=== PATIENT | male | born 1985 | race Caucasian/White ===

== ENCOUNTER 2022-10-20 16:20 | Outpatient (CLI) | payer BC, SELFPAY ==
[2022-10-20 21:13] LABS: Chloride* 103 mmol/L (96-114); Sodium* 141 mmol/L (135-149)
[2022-10-20 21:16] LABS: Creatinine* 0.8 mg/dL (0.5-1.5); Estimated Glomerular Filt Rate 118 ml/min
[2022-10-20 21:17] LABS: Blood Urea Nitrogen* 16 mg/dL (5-24); Calcium* 9.7 mg/dL (8.4-10.6); Carbon Dioxide* 28 mmol/L (20-32); Glucose* 85 mg/dL (60-115)
[2022-10-20 21:57] LABS: HIV 1/2/P24 Combo Screen* Negative (Negative)
[2022-10-20 22:57] LABS: Chlamydia DNA Amplified* NOT DETECTED (No Detected); GC DNA Amplified* NOT DETECTED (No Detected)
== END 2022-10-20 16:21 | disposition home or self-care (01) ==
PROVIDERS: Visit Provider Family Medicine
DX: Z00.00 Encounter for general adult medical examination without abnormal findings (principal); I10 Essential (primary) hypertension; Z11.3 Encounter for screening for infections with a predominantly sexual mode of transmission
CPT/HCPCS: 80048; 86703; 87491; 87591

== ENCOUNTER 2023-10-21 07:55 | Outpatient (CLI) | payer BC, SELFPAY ==
--- OUTSIDE RECORDS SUMMARY | 2023-10-21 10:47 | XMS_ITS | Encounter Summary ---
Author Name Unknown Organization [facility] Address [address] [place] [address] Care Team Providers Care Test Consultant Name Role Phone No Ref-Primary, Physician Primary Care Provider Aline Benito PA-C Primary Care Provider + Aline Benito PA-C Unavailable Aline Benito PA-C Unavailable Dana Carcamo MD Unavailable Leslie Thorne APRN THERMOSTAT MAKER Unavailable Tex Patino MD Unavailable Dana Carcamo MD Unavailable Tex Patino MD Unavailable Tex Patino MD Unavailable Dana Carcamo MD Unavailable Dana Carcamo MD Unavailable Tex Patino MD Unavailable Dana Carcamo MD Unavailable Tex Patino MD Unavailable Dana Carcamo MD Unavailable Tex Patino MD Unavailable Dana Carcamo MD Unavailable Tex Patino MD Unavailable Tex Patino MD Unavailable Encounter Details Date Type Department Care Team (Late st Contact Info) Description 10/07/2017 MyC Medical Advice [address] [phone] Zeny Llanos, RN Social History Tobacco Use Types Packs/Day Years Used Date Smoking Tobacco: Never Smokeless Tobacco: Never Alcohol Use Standard Drinks/Week Comments Yes 0 (1 standard drink = 0.6 oz pur e alcohol) occasionally Sex and Gender Information Value Date Recorded Sex Assigned at Male 09/09/2020 3:14 PM ENRICHMENT TEACHER Gender Identity Male 09/09/2020 3:14 PM ENRICHMENT TEACHER Sexual Orientation Bisexual 04/09/2021 3: 59 PM CDT Sexual Orientation Something else 04/09/2021 3: 59 PM CDT documented as of this encounter Plan of Treatment Not on file documented as of this encounter Visit Diagnoses Not on filedocumented in this encounter Additional Health Concerns Assessment Noted Time PHQ-9 Depression Total Score: 20 017 7:31 AM CDT documented as of this encounter Care Teams Test Consultant Relationship Specialty Start Date End Date No Ref-Primary, Physician PCP - General 09/09/15 04/13/18 Aline Benito PA-C 477[address] [facility] [place] [address] PCP - General Physician Animal Husbandry Manager - Medical 04/14/18 Aline Benito PA-C 45330 [facility] [place] [address] PCP - Assigned PCP 04/17/18 12/13/18 Aline Benito PA-C 89[address] [place] [address] Assigned PCP 04/17/18 12/14/20 [place] [address] [place] [address] Assigned PCP 12/15/20 05/17/21 Leslie Thorne APRN [facility] [address] [place] [address] Assigned PCP 05/18/21 07/19/21 [place] [address] [place] [address] Assigned PCP 07/20/21 09/13/21 [place] [address] [place] [address] Assigned PCP 09/14/21 10/04/21 [place] [address] [place] [address] Assigned PCP 10/05/21 10/18/21 [place] [address] [place] [address] Assigned PCP 10/26/21 11/01/21 [place] [address] [place] [address] Assigned PCP 10/19/21 10/25/21 [place] [address] [place] [address] Assigned PCP 11/23/21 01/10/22 [place] [address] [address] J[place]MA[place] N[place] [address] Assigned PCP 11/16/21 11/22/21 [place] [address] [address] JUAN STALE[place] [address] Assigned PCP 11/02/21 11/15/21 [place] [address] JUAN MARMOLEJO [address] Assigned PCP 01/11/22 02/07/22 [place] [address] [address] JUAN STALEY [address] Assigned PCP 02/08/22 03/13/22 [place] [address] [address] JUAN STALEY 87498 Assigned PCP 03/28/22 09/25/22 [place] [address] JUAN MARMOLEJO [address] Assigned PCP 03/21/22 03/27/22 [place] [address] JUAN MARMOLEJO [address] Assigned PCP 03/14/22 03/20/22 [place] [address] JU[place] MARMOLEJO 260[address] Assigned PCP 12/05/22 documented as of this encounter
--- OUTSIDE RECORDS SUMMARY | 2023-10-21 10:47 | XMS_ITS | Encounter Summary ---
Author Name Unknown Organization [facility] Address [address] [place] [address] Care Team Providers Care Electric Gas Appliances Demonstrator Name Role Phone Aline Benito PA-C Primary Care Provider + Tex Patino MD Unavailable [phone] Dana Carcamo MD Unavailable Tex Patino MD [...] Care Team (Late st Contact Info) Description 07/24/2021 [facility] [address] [facility], [address] JU[place] [address] Kyra Grover Social History Tobacco Use Types Packs/Day Years Used Date Smoking Tobacco: Never Smokeless Tobacco: Never Alcohol Use Standard Drinks/Week Comments Not Currently 0 (1 standard drink = 0.6 oz pur e alcohol) occ beer here and there PHQ-2 Answer Date Recorded PHQ-2 Score 2 07/10/2021 Sex and Gender Information Value Date Recorded Sex Assigned at Male 09/09/2020 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 No / Unsure 07/24/2021 10:02 AM CDT documented as of this encounter Plan of Treatment Not on file documented as of this encounter Visit Diagnoses Not on filedocumented in this encounter Additional Health Concerns Assessment Noted Time PHQ-9 Depression Total Score: 7 05/17/20 21 7:03 AM CDT documented as of this encounter Care Teams Electric Gas Appliances Demonstrator Relationship Specialty Start Date End Date Aline Benito PA-C [id number] [place] [address] [place] [address] PCP - General Physician Automatic Furnace Operator - Medical 04/14/18 [place] [address] [place] [address] Assigned PCP 07/20/21 09/13/21 [place] [address] [place] [address] Assigned PCP 09/14/21 10/04/21 [place] [address] [place] [address] Assigned PCP 10/05/21 10/18/21 [place] [address] [place] [address] Assigned PCP 10/26/21 11/01/21 [place] [address] [place] [address] Assigned PCP 10/19/21 10/25/21 [place] [address] [place] [address] Assigned PCP 11/23/21 01/10/22 [place] [address] [place] [address] Assigned PCP 11/16/21 11/22/21 [place] [address] [place] [address] Assigned PCP 11/02/21 11/15/21 [place] [address] [place] [address] Assigned PCP 01/11/22 02/07/22 [place] [address] [place] [address] Assigned PCP 02/08/22 03/13/22 [place] [address] JUAN MARMOLEJO [address] Assigned PCP 03/28/22 09/25/22 [place] [address] JUAN MARMOLEJO [address] Assigned PCP 03/21/22 03/27/22 [place] [address] JUAN MARMOLEJO [address] Assigned PCP 03/14/22 03/20/22 [place] [address] JUAN MARMOLEJO [address] Assigned PCP 12/05/22 documented as of this encounter
--- OUTSIDE RECORDS SUMMARY | 2023-10-21 10:47 | XMS_ITS | Encounter Summary ---
Author Name Unknown Organization [facility] Address [address] [place] [address] Care Team Providers Care Automobile Tester Name Role Phone Aline Benito PA-C Primary Care Provider + Aline Benito PA-C Unavailable Dana Carcamo MD Unavailable Leslie Thorne APRN, CNP Unavailable Tex Patino MD Unavailable Dana Carcamo [...] Encounter Details Date Type Department Care Team (Latest Contact Info) Description 10/08/2020 Historic Results Social History Tobacco Use Types Packs/Day Years Used Date Smoking Tobacco: Never Smokeless Tobacco: Never Alcohol Use Standard Drinks/Week Comments Not Currently 0 (1 standard drink = 0.6 oz pur e alcohol) occ beer here and there PHQ-2 Answer Date Recorded PHQ-2 Score 2 10/08/2020 Sex and Gender Information Value Date Recorded Sex Assigned at Male 09/09/2020 3:14 PM LUMBER BEARER Gender Identity Male 09/09/2020 3:14 PM LUMBER BEARER Sexual Orientation Bisexual 04/09/2021 3: 59 PM CDT Sexual Orientation Something else 04/09/2021 3: 59 PM CDT COVID-19 Exposure Response Date Recorded In the last month, have you been in contact with someone who was confirmed or suspected to have Coronavirus / COVID-19? No / Unsure 10/08/2020 11:38 AM LUMBER BEARER documented as of this encounter Plan of Treatment Not on file documented as of this encounter Visit Diagnoses Not on filedocumented in this encounter Additional Health Concerns Assessment Noted Time PHQ-9 Depression Total Score: 14 020 7:01 AM LUMBER BEARER documented as of this encounter Care Teams Automobile Tester Relationship Specialty Start Date End Date Aline Benito PA-C 38079 [address] [place] [address] PCP - General Physician Corporation Secretary - Medical 04/14/18 Aline Benito PA-C 68894 [place] [address] Assigned PCP 04/17/18 12/14/20 [place] [address] [place] [place] [address] Assigned PCP 12/15/20 05/17/21 Leslie Thorne APRN [facility] [address] [place], [place] [address] Assigned PCP 05/18/21 07/19/21 [place] [address] [place] J[place]MANA [place], JUAN [address] Assigned PCP 07/20/21 09/13/21 [place] [address] [address] JUAN STALEY [address] Assigned PCP 09/14/21 10/04/21 [place] [address] [address] JUAN STALEY [address] Assigned PCP 10/05/21 10/18/21 [place] [address] [address] JUAN STALEY [address]478 Assigned PCP 10/26/21 11/01/21 [place] [address] [address] JUAN STALEY 90217 Assigned PCP 10/19/21 10/25/21 [place] [address] [address] JUAN STALEY 80991 Assigned PCP 11/23/21 01/10/22 [place] [address] [address] JUAN STALEY [address] Assigned PCP 11/16/21 11/22/21 [place] [address] [place] [address] Assigned PCP 11/02/21 11/15/21 [place] [address] [place] [address] Assigned PCP 01/11/22 02/07/22 [place] [address] [place] [address] Assigned PCP 02/08/22 03/13/22 [place] [address] [place] [address] Assigned PCP 03/28/22 09/25/22 [place] [address] [place] [address] Assigned PCP 03/21/22 03/27/22 [place] [address] [place] [address] Assigned PCP 03/14/22 03/20/22 [place] [address] [place] [address] Assigned PCP 12/05/22 documented as of this encounter
--- OUTSIDE RECORDS SUMMARY | 2023-10-21 10:47 | XMS_ITS | Encounter Summary ---
Author Name Unknown Organization [facility] Address [address] [place] [address] Care Team Providers Care Rn Gastroenterology Name Role Phone Aline Benito PA-C Primary Care Provider + Tex Patino MD Unavailable Reason for Visit * Reason Onset Date Comments Panel Management 06/08/2023 Encounter Details Date Type Department Care Team (Late st Contact Info) Description 06/08/[address] [facility] [address] [facility], [address] [place] [address] Aline Benito PA-C [address] [place] [address] Panel Management Social History Tobacco Use Types Packs/Day Years Used Date Smoking Tobacco: Never Smokeless Tobacco: Never Alcohol Use Standard Drinks/Week Comments Not Currently 0 (1 standard drink = 0.6 oz pur e alcohol) occ beer here and there PHQ-2 Answer Date Recorded PHQ-2 Score 2 07/10/2021 Sex and Gender Information Value Date Recorded Sex Assigned at Male 09/09/2020 3:14 PM LEATHER CARTRIDGE BELT MAKER Gender Identity Male 09/09/2020 3:14 PM LEATHER CARTRIDGE BELT MAKER Sexual Orientation Bisexual 04/09/2021 3: 59 PM CDT Sexual Orientation Something else 04/09/2021 3: 59 PM CDT documented as of this encounter Miscellaneous Notes * Telephone Encounter - Heather Jimenez - 06/09/2023 8:46 AM CDT MyChart not read. Sending letter. * Telephone Encounter - Katty Davey CMA - 06/08/2023 7:09 PM CDT Patient Quality Outreach Patient is due for the following: Hypertension - BP check Depression - PHQ-9 needed Physical Preventive Adult Physical Topic Date Due Diptheria Tetanus Pertussis (DTAP/TDAP/TD) Vaccine (7 - Td or Tdap) 01/31/2022 Next Steps: Schedule a Adult Preventative Type of outreach: Sent [employer] message. If not read in 1 week send letter Questions for provider review: None Katty Davey CMA Chart routed to Care Team. documented in this encounter Plan of Treatment Not on file documented as of this encounter Visit Diagnoses Not on filedocumented in this encounter Additional Health Concerns Assessment Noted Time PHQ-9 Depression Total Score: 7 05/17/20 21 7:03 AM CDT documented as of this encounter Care Teams Rn Gastroenterology Relationship Specialty Start Date End Date Aline Benito PA-C 92[address] JU[address]JO [id number] PCP - General Physician Optometry Professor - Medical 04/14/18 [place] [address] JU[place] MAR[place]JO [address] Assigned PCP 12/05/22 documented as of this encounter
--- OUTSIDE RECORDS SUMMARY | 2023-10-21 10:47 | XMS_ITS | Encounter Summary ---
Author Name Unknown Organization [facility] Address [address] [place] [address] Care Team Providers Care Assurance Senior Name Role Phone No Ref-Primary, Physician Primary Care Provider Aline Benito PA-C Primary Care Provider + Aline Benito PA-C Unavailable Aline Benito PA-C Unavailable Dana Carcamo MD Unavailable Leslie Thorne APRN BIOINFORMATICIAN Unavailable Tex Patino MD Unavailable Dana Carcamo MD Unavailable Tex Patino MD Unavailable Tex Patino MD Unavailable Dana Carcamo MD Unavailable Dana Carcamo MD Unavailable Tex Patino MD Unavailable Dana Carcamo MD Unavailable Tex Patino MD Unavailable Dana Carcamo MD Unavailable Tex Patino MD Unavailable [phone] Dana Carcamo MD Unavailable Tex Patino MD Unavailable [phone] Tex Patino MD Unavailable [phone] Reason for Visit * Reason Onset Date Comments Refill Request 03/26/2018 Encounter Details Date Type Department Care Team (Late st Contact Info) Description 03/26/2018 MyC Refill [facility] [address] [place] [phone] Rafiq Cuba PA-C [address] [place] [address] Refill Request Social History Tobacco Use Types Packs/Day Years Used Date Smoking Tobacco: Never Smokeless Tobacco: Never Alcohol Use Standard Drinks/Week Comments Yes 0 (1 standard drink = 0.6 oz pur e alcohol) occasionally Sex and Gender Information Value Date Recorded Sex Assigned at Male 09/09/2020 3:14 PM DRIVER LICENSE REVIEWING OFFICER Gender Identity Male 09/09/2020 3:14 PM DRIVER LICENSE REVIEWING OFFICER Sexual Orientation Bisexual 04/09/2021 3: 59 PM CDT Sexual Orientation Something else 04/09/2021 3: 59 PM CDT documented as of this encounter Miscellaneous Notes * Telephone Encounter - Zeny Llanos RN - 03/28/2018 10:52 AM CDTMessage from [employer]: Original authorizing provider: MANNIE Giordano would like a refill of the following medications: metoprolol succinate (TOPROL-XL) 50 MG 24 hr tablet [Rafiq Cuba PA-C] Preferred pharmacy: [place] [address] Comment: I have moved and would like my prescriptions [place] [address] Medication renewals requested in this message routed to other providers: citalopram (CELEXA) 10 MG tablet [NARCISO QUEZADA MD] hydrOXYzine (ATARAX) 25 MG tablet [Rogelio Fairbanks MD] documented in this encounter Plan of Treatment Not on file documented as of this encounter Visit Diagnoses Diagnosis Benign essential hypertension Essential hypertension, benign documented in this encounter Additional Health Concerns Assessment Noted Time PHQ-9 Depression Total Score: 20 017 7:31 AM CDT documented as of this encounter Care Teams Assurance Senior Relationship Specialty Start Date End Date No Ref-Primary, Physician PCP - General 09/09/15 04/13/18 Aline Benito PA-C 89343 J[place] [address] PCP - General Physician Thread Grinder Tool - Medical 04/14/18 Aline Benito PA-C 65951 JU[place] [address] PCP - Assigned PCP 04/17/18 12/13/18 Aline Benito PA-C 31673 JU[place] [address] Assigned PCP 04/17/18 12/14/20 [place] [address] JU[place] MARMOLEJO 97[address] Assigned PCP 12/15/20 05/17/21 Leslie Thorne APRN BIOINFORMATICIAN [address] JU[place] [address] Assigned PCP 05/18/21 07/19/21 [place] [address] [place] [address] Assigned PCP 07/20/21 09/13/21 [place] [address] [place] [address] Assigned PCP 09/14/21 10/04/21 [place] [address] [place] [address] Assigned PCP 10/05/21 10/18/21 [place] [address] [place] [address] Assigned PCP 10/26/21 11/01/21 [place] [address] [place] [address] Assigned PCP 10/19/21 10/25/21 [place] [address] [place] [address] Assigned PCP 11/23/21 01/10/22 [place] [address] [place] [address] Assigned PCP 11/16/21 11/22/21 [place] [address] [place] [address] Assigned PCP 11/02/21 11/15/21 [place] [address] JUAN MARMOLEJO 938[address] Assigned PCP 01/11/22 02/07/22 [place] [address] JUAN MARMOLEJO 90841 Assigned PCP 02/08/22 03/13/22 [place] [address] JUAN MARMOLEJO 19[address] Assigned PCP 03/28/22 09/25/22 [place] [address] JUAN MARMOLEJO [address] Assigned PCP 03/21/22 03/27/22 [place] [address] JUAN MARMOLEJO 95397 Assigned PCP 03/14/22 03/20/22 [place] [address] JUAN MARMOLEJO 589[address] Assigned PCP 12/05/22 documented as of this encounter
--- OUTSIDE RECORDS SUMMARY | 2023-10-21 10:47 | XMS_ITS | Referral Summary ---
Author Name Unknown Organization [facility] Address [address] [place] [address] Care Team Providers Care Digital Strategist Name Role Phone Aline Benito PA-C Primary Care Provider + Tex Patino MD Unavailable [phone] Allergies Active Allergy Reactions Criticality Noted Date Comments Trazodone Other (See Comments) 05/17/2007 Pt does not remember Medications Medication Sig Dispensed Refills Start Date End Date Status citalopram (CELEXA) 40 MG tabletIndications:Sandy r depressive disorder, recurrent episode, mild (H24),MAXWELL (generalized anxiety disorder) Take 1 tablet (40 mg) by mouth daily 90 tablet 1 07/10/2021 Active ARIPiprazole (ABILIFY) 2 MG tabletIndications:Sandy r depressive disorder, recurrent episode, mild (H24) Take 1 tablet (2 mg) by mouth daily 30 tablet 1 07/10/2021 Active lisinopril (ZESTRIL) 10 MG tabletIndications:Parish gn essential hypertension Take 1 tablet (10 mg) by mouth daily 90 tablet 0 07/10/2021 Active metoprolol succinate ER (TOPROL-XL) 50 MG 24 hr tabletIndications:Parish gn essential hypertension Take 1 tablet (50 mg) by mouth daily 90 tablet 0 07/10/2021 Active hydrOXYzine (ATARAX) 25 MG tabletIndications:Lev c attacks TAKE 1 TO 2 TABLETS BY MOUTH EVERY 6 HOURS NEEDED FOR PANIC. 20 tablet 1 07/10/2021 Active Active Problems Problem Noted Date Diagnosed Date Morbid obesity 10/08/2020 Acute seasonal allergic rhinitis, unspecified tr igger 06/29/2018 Benign essential hypertension 07/21/2017 MAXWELL (generalized anxiety disorder) 05/27/2017 Major depressive disorder, recurrent episode, mi ld (H24) 04/29/2017 CARDIOVASCULAR SCREENING; LDL GOAL LESS THAN 160 07/02/2014 Panic attacks 07/02/2014 Autistic spectrum disorder 07/02/2014 Overview: Corey. Class 1 obesity without serious comorbidity in a dult 07/02/2014 Resolved Problems Problem Noted Date Diagnosed Date Resolved Date Obesity (BMI 35.0-39.9) with comorbidity 08/17/2018 12/14/2019 Depression 07/02/2014 07/21/2017 Immunizations Name Administration Dates Next Due COVID-19 Monovalent 18+ (Moderna) 03/04/2021, COVID-19 Monovalent Booster 18+ (Moderna) 11/17/2021 DTAP (<7y) 03/17/1996, 3,04/28/1989,1987,01/02/1988,1987 Hepatitis B, Peds 01/01/1997,05/01/1996,03/17/19 96 Historic Hib Hib-titer 04/28/1989,1987,01/02/1988,1987 Influenza Vaccine >6 months,quad, PF 07/10/2021, 10/08/2020,12/13/2019 MMR 10/14/1998,04/28/1989,02/25/1989 Mantoux Tuberculin Skin Test 07/02/2014 OPV, trivalent, live 03/17/1996 Poliovirus, inactivated (IPV) 10/14/1998 ,04/28/1989,01/02/1988,1987 TDAP Vaccine (Adacel) 02/01/2012 Social History Tobacco Use Types Packs/Day Years Used Date Smoking Tobacco: Never Smokeless Tobacco: Never Alcohol Use Standard Drinks/Week Comments Not Currently 0 (1 standard drink = 0.6 oz pur e alcohol) occ beer here and there PHQ-2 Answer Date Recorded PHQ-2 Score 2 07/10/2021 Adolescent Education Answer Date Record ed Getting School Help Needed Not on file 07/02 Sex and Gender Information Value Date Recorded Sex Assigned at Male 09/09/2020 3:14 PM AMMUNITION STOREKEEPER Gender Identity Male 09/09/2020 3:14 PM AMMUNITION STOREKEEPER Sexual Orientation Bisexual 04/09/2021 3: 59 PM CDT Sexual Orientation Something else 04/09/2021 3: 59 PM CDT Last Filed Vital Signs Vital Sign Reading Time Taken Comments Blood Pressure 142/96 07/24/2021 10:18 AM CDT Pulse 67 07/10/2021 11:18 AM CDT Temperature 36.9 ??C (98.4 ??F) 07/10/2021 11:18 AM C DT Respiratory Rate 20 07/10/2021 11:18 AM CDT Oxygen Saturation 98% 07/10/2021 11:18 AM CDT Inhaled Oxygen Concentration - - Weight 156.9 kg (346 lb) 07/10/2021 11:18 AM CDT Height 188.6 cm (6' 2.25) 07/10/2021 11:18 AM C DT Body Mass Index 44.13 07/10/2021 11:18 AM CDT Plan of Treatment Not on file Care Teams Digital Strategist Relationship Specialty Start Date End Date Aline Benito PA-C [address] [facility] [place] [address] PCP - General Physician Sawmill Supervisor - Medical 04/14/18 [place] [address] JOHNNYJUAN HACKETT [address] Assigned PCP 12/05/22
--- OUTSIDE RECORDS SUMMARY | 2023-10-21 10:47 | XMS_ITS | Clinical Summary ---
Author Name Unknown Organization [facility] Address [address] [place] [address] Care Team Providers Care Fare Register Repairer Name Role Phone Aline Benito PA-C Primary Care Provider + Tex Patino MD Unavailable [phone] Allergies Active Allergy Reactions Criticality Noted Date [...] (IPV) 10/14/1998 ,04/28/1989,01/02/1988,1987 TDAP Vaccine (Adacel) 02/01/2012 Family History Medical History Relation Comments C.A.D. Father angioplasty- age 28. Hypertension Father Other - See Comments Father quadruple b ypass Anxiety Disorder Mother panic attack C.A.D. Paternal Grandfather CABG Diabetes Paternal Grandfather Relation Status Comments Brother Alive Father Alive Mother Alive Paternal Grandfather Social History Tobacco Use Types Packs/Day Years [...] Sex Assigned at Male 09/09/2020 3:14 PM DRILLING FIELD SPECIALIST Gender Identity Male 09/09/2020 3:14 PM DRILLING FIELD SPECIALIST Sexual Orientation Bisexual 04/09/2021 3: 59 PM [...] 07/10/2021 11:18 AM CDT Plan of Treatment Health Maintenance Due Date Last Done Comments ANNUAL REVIEW OF HM ORDERS 1987 PHQ-9 11/16/2021 05/16/2021, 09/11, 12/13/2019, Additional history exists DTAP/TDAP/TD IMMUNIZATION (7 - Td or Tdap) 01/31/2022 02/01/2012, 03/17/1996, 11/18/1992, Additional history exists MAXWELL ASSESSMENT 05/16/2022 05/16/2021, 09/11, 12/13/2019, Additional history exists BMP 07/10/2022 07/10/2021, 01/2020, 06/26/2019, Additional history exists YEARLY PREVENTIVE VISIT 07/10/2022 07/10/20 21, 10/08/2020, 07/21/2017, Additional history exists COVID-19 Vaccine ( season) 2023 11/14/2022, 11/17/2021, 03/04/2021, Additional history exists INFLUENZA VACCINE (#1) 2023 , 10/08/2020, 12/13/2019 ADVANCE CARE PLANNING 07/10/2026 07/10/2021 LIPID 07/10/2026 07/10/2021, 07/11, 07/04/2014 HEPATITIS B IMMUNIZATION Completed 997, 05/01/1996, 03/17/1996 IPV IMMUNIZATION Completed 10/14/1998, 04/1996, 04/28/1989, Additional history exists DEPRESSION ACTION PLAN Completed 8, 06/27/2018, 07/21/2017 HIV SCREENING Completed 05/16/2021, 01/2020, 06/29/2018 HEPATITIS C SCREENING Discontinued HPV IMMUNIZATION Aged Out No longer e ligible based on patient's age to complete this topic MENINGITIS IMMUNIZATION Aged Out No l onger eligible based on patient's age to complete this topic Pneumococcal Vaccine: Pediatrics (0 to 5 Years) and At-Risk Patients (6 to 64 Years) Aged Out No longer eligible based on patient's age to complete this topic RSV MONOCLONAL ANTIBODY Aged Out No l onger eligible based on patient's age to complete this topic Care Teams Fare Register Repairer Relationship Specialty Start Date End Date Aline Benito PA-C [address] [place] [address] PCP - General Physician Interventional Nurse - Medical 04/14/18 [place] [address] JU[place] MARMOLEJO [address] Assigned PCP 12/05/22
--- OUTSIDE RECORDS SUMMARY | 2023-10-21 10:47 | XMS_ITS | Encounter Summary ---
Author Name Unknown Organization [facility] Address [address] [place] [id number] Care Team Providers Care Ciaio Counter Molder Name Role Phone No Ref-Primary, Physician Primary Care Provider Aline Benito PA-C Primary Care Provider + Aline Benito PA-C Unavailable Aline Benito PA-C Unavailable Dana Carcamo MD Unavailable Leslie Thorne APRN ONLINE MARKETING ANALYST Unavailable Tex Patino MD Unavailable Dana Carcamo MD Unavailable Tex Patino MD Unavailable Tex Patino MD Unavailable Dana Carcamo MD Unavailable Dana Carcamo MD Unavailable Tex Patino MD Unavailable Dana Carcamo MD Unavailable Tex Patino MD Unavailable Dana Carcamo MD Unavailable Tex Patino MD Unavailable [phone] Dana Carcamo MD Unavailable [phone] Tex Patino MD Unavailable [phone] Tex Patino MD Unavailable [phone] Reason for Visit * Reason Onset Date Comments Refill Request 03/26/2018 Encounter Details Date Type Department Care Team (Late st Contact Info) Description 03/26/2018 MyC Refill [facility] [address] [place] [phone] [place] [address] [place] [address] Refill Request Social History Tobacco Use Types Packs/Day Years Used Date Smoking Tobacco: Never Smokeless Tobacco: Never Alcohol Use Standard Drinks/Week Comments Yes 0 (1 standard drink = 0.6 oz pur e alcohol) occasionally Sex and Gender Information Value Date Recorded Sex Assigned at Male 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 Gender Identity Male 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 Sexual Orientation Bisexual 04/09/2021 3: 59 PM CDT Sexual Orientation Something else 04/09/2021 3: 59 PM CDT documented as of this encounter Miscellaneous Notes * Telephone Encounter - Zeny Llanos RN - 03/28/2018 12:51 PM CDTMessage from MyChart: Original authorizing provider: MD Bob Armas would like a refill of the following medications: hydrOXYzine (ATARAX) 25 MG tablet [Rogelio Fairbanks MD] Preferred pharmacy: [place] [address] Comment: I have moved and would like my prescriptions [place] [address] Medication renewals requested in this message routed to other providers: metoprolol succinate (TOPROL-XL) 50 MG 24 hr tablet [Rafiq Cuba PA-C] citalopram (CELEXA) 10 MG tablet [NARCISO QUEZADA MD] documented in this encounter Plan of Treatment Not on file documented as of this encounter Visit Diagnoses Diagnosis Panic attacks Panic disorder without agoraphobia documented in this encounter Additional Health Concerns Assessment Noted Time PHQ-9 Depression Total Score: 20 017 7:31 AM CDT documented as of this encounter Care Teams Ciaio Counter Molder Relationship Specialty Start Date End Date No Ref-Primary, Physician PCP - General 09/09/15 04/13/18 Aline Benito PA-C [address] [address] [id number] PCP - General Physician Vmware Administrator - Medical 04/14/18 Aline Benito PA-C [address]604 [address] [address] [id number] PCP - Assigned PCP 04/17/18 12/13/18 Aline Benito PA-C [address]59 [address] [place] [address] Assigned PCP 04/17/18 12/14/20 [place] [address] [place] [address] Assigned PCP 12/15/20 05/17/21 Leslie Thorne APRN ONLINE MARKETING ANALYST [address] [address] [address] Assigned PCP 05/18/21 07/19/21 [place] [address] [place] [address] Assigned PCP 07/20/21 09/13/21 [place] [address] [place] [address] Assigned PCP 09/14/21 10/04/21 [place] [address] [place] [address] Assigned PCP 10/05/21 10/18/21 [place] [address] [place] [address] Assigned PCP 10/26/21 11/01/21 [place] [address] [place] [address] Assigned PCP 10/19/21 10/25/21 [place] [address] [place] [address] Assigned PCP 11/23/21 01/10/22 [place] [address] [place] [address] Assigned PCP 11/16/21 11/22/21 [place] [address] [place] [address] Assigned PCP 11/02/21 11/15/21 [place] [address] [address] [address] Assigned PCP 01/11/22 02/07/22 [place] [address] [address] [address] [address] Assigned PCP 02/08/22 03/13/22 [place] [address] [address] [address] 95140 Assigned PCP 03/28/22 09/25/22 [place] [address] [place] [address] Assigned PCP 03/21/22 03/27/22 [place] [address] [place]LEJO 94270 Assigned PCP 03/14/22 03/20/22 [place] [address] [place] [address] Assigned PCP 12/05/22 documented as of this encounter
--- OUTSIDE RECORDS SUMMARY | 2023-10-21 10:48 | XMS_ITS | Encounter Summary ---
Author Name Unknown Organization [place] Address [address] [place] [address] Care Team Providers Care Senior Project Leader/Team Lead Name Role Phone No Ref-Primary, Physician Primary Care Provider Aline Benito PA-C Primary Care Provider + Aline Benito PA-C Unavailable Aline Benito PA-C Unavailable Dana Carcamo MD Unavailable Leslie Thorne APRN PRODUCT SAFETY HEAD Unavailable Tex Patino MD Unavailable Dana Carcamo MD Unavailable Tex Patino MD Unavailable Tex Patino MD Unavailable Dana Carcamo MD Unavailable Dana Carcamo MD Unavailable Tex Patino MD Unavailable Dana Carcamo MD Unavailable Tex Patino MD Unavailable Dana Carcamo MD Unavailable Tex Patino MD Unavailable [phone] Dana Carcamo MD Unavailable [phone] Tex Patino MD Unavailable Tex Patino MD Unavailable Encounter Details Date Type Department Care Team (Latest Contact Info) Description 04/29/2017 Historic Results Social History Tobacco Use Types Packs/Day Years Used Date Smoking Tobacco: Never Smokeless Tobacco: Never Alcohol Use Standard Drinks/Week Comments Yes 0 (1 standard drink = 0.6 oz pur e alcohol) occasionally Sex and Gender Information Value Date Recorded Sex Assigned at Male 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 Gender Identity Male 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 [place] [address] PCP - General Physician Reverberatory Furnace Supervisor - Medical 04/14/18 Aline Benito PA-C [address] [facility] [place] [address] PCP - Assigned PCP 04/17/18 12/13/18 Aline Benito PA-C [address] [place] [address] Assigned PCP 04/17/18 12/14/20 [place] [address] [place] [place], JUAN [address] Assigned PCP 12/15/20 05/17/21 DuartepalmaLeslie Patsy MedelTAWANA sheriffN [facility] [address] [place] [address] Assigned PCP 05/18/21 07/19/21 [place] [address] [address] [address] Assigned PCP 07/20/21 09/13/21 [place] [address] [place] [place] [address] Assigned PCP 09/14/21 10/04/21 [place] [address] [address] [place] [address] Assigned PCP 10/05/21 10/18/21 [place] [address] A[place]ANE [address] Assigned PCP 10/26/21 11/01/21 [place] [address] [address] [address] Assigned PCP 10/19/21 10/25/21 [place] [address] [address] [address] Assigned PCP 11/23/21 01/10/22 [place] [address] [place] [address] Assigned PCP 11/16/21 11/22/21 [place] [address] [place] [address] Assigned PCP 11/02/21 11/15/21 [place] [address] [place] [address] Assigned PCP 01/11/22 02/07/22 [place] [address] [place] [address] Assigned PCP 02/08/22 03/13/22 [place] [address] [place] [address] Assigned PCP 03/28/22 09/25/22 [place] [address] [place] [address] Assigned PCP 03/21/22 03/27/22 [place] [address] [place] [address] Assigned PCP 03/14/22 03/20/22 [place] [address] [address]LEJO [address] Assigned PCP 12/05/22 documented as of this encounter
== END 2023-10-21 07:56 | disposition home or self-care (01) ==
LOC: NFLDREF 10:45
PROVIDERS: PCP Family Medicine; Referring Provider Family Medicine; Visit Provider Family Medicine
DX: I10 Essential (primary) hypertension (principal); Z13.6 Encounter for screening for cardiovascular disorders
CPT/HCPCS: 80053; 80061